=== PATIENT | male | born 1955 | race Asian ===

== ENCOUNTER 2017-02-27 01:03 | Emergency (ER) | payer OTHER ==
[2017-02-27] MEDS ORDERED: ONDANSETRON 4 MG/2 ML VIAL IVP STA (01:24)
[2017-02-27] MEDS ORDERED: diphenhydrAMINE INJ 50 MG/ML VIAL IVP STA (01:30)
[2017-02-27] MEDS ORDERED: FAMOTIDINE 20 MG/2 ML VIAL IVP STA (01:30)
[2017-02-27] MEDS ORDERED: methylPREDNISolone SUCCINATE 125 MG/2 ML VIAL IVP STA (01:30)
[2017-02-27] MEDS ORDERED: ONDANSETRON 4 MG/2 ML VIAL ONE (01:31)
[2017-02-27] MEDS ORDERED: FAMOTIDINE 20 MG/50 ML 0 ML IV ONE (01:35)
[2017-02-27] MEDS ORDERED: diphenhydrAMINE INJ 50 MG/ML VIAL ONE (01:35)
[2017-02-27] MEDS ORDERED: methylPREDNISolone SUCCINATE 125 MG/2 ML VIAL IVP ONE (01:35)
[2017-02-27 01:36] LABS: BASOPHILS # (AUTO) 0.1 10^3/uL (0.0-0.1); BASOPHILS % (AUTO) 0.6 %; EOSINOPHILS % (AUTO) 0.3 %; HCT - HEMATOCRIT 41.1 % (42.0-52.0); HGB - HEMOGLOBIN 13.2 g/dL (14.0-18.0); LYMPHOCYTES # (AUTO) 0.9 10^3/uL (1.5-3.5); LYMPHOCYTES % (AUTO) 9.2 %; MEAN CORPUSCULAR HEMOGLOBIN 23.7 pg (27.0-31.0); MEAN CORPUSCULAR HGB CONC 32.1 g/dL (32.0-36.0); MEAN CORPUSCULAR VOLUME 73.8 fL (80.0-94.0); MEAN PLATELET VOLUME 7.4 fL (7.4-11.4); MONOCYTES # (AUTO) 0.3 10^3/uL (0.0-1.0); MONOCYTES % (AUTO) 3.5 %; NEUTROPHILS # (AUTO) 8.4 10^3/uL (1.5-6.6); NEUTROPHILS % (AUTO) 86.4 %; RED BLOOD COUNT 5.57 10^6/uL (4.70-6.10); RED CELL DISTRIBUTION WIDTH 14.4 % (12.0-15.0); UNCORRECTED WHITE BLOOD COUNT 9.8 x10^3/uL; WHITE BLOOD COUNT 9.8 x10^3/uL (4.8-10.8)
[2017-02-27 01:37] LABS: BILIRUBIN,URINE NEGATIVE (NEGATIVE)
[2017-02-27] MEDS ORDERED: FAMOTIDINE 20 MG/2 ML VIAL ONE (01:37)
[2017-02-27 01:46] LABS: UA w/ MICROSCOPIC CHARGE YES; WBC,URINE 0-3 /HPF (0-3)
[2017-02-27 01:47] LABS: UR CULTURE IF IND NOT INDICATED
[2017-02-27 01:52] LABS: ALBUMIN/GLOBULIN RATIO 1.3 (1.0-2.2); BILIRUBIN,TOTAL 0.7 mg/dL (0.2-1.0); CREATININE 0.8 mg/dL (0.6-1.2); POTASSIUM 3.5 mmol/L (3.5-5.0); TOTAL PROTEIN 6.8 g/dL (6.7-8.2)
[2017-02-27] MEDS ORDERED: GI COCKTAIL 120 ML BOTTLE PO STA (02:18)
--- NOTE | 2017-02-27 02:22 | ED Physician Documentation ---
PD HPI ABD PAIN - Stated complaint Stated Complaint: RASH,ABD PX,VOMITING - Chief complaint Chief Complaint: Abd Pain - History obtained from History obtained from: Patient - History of Present Illness Timing - onset: Today Timing - details: Gradual onset, Still present Quality: Cramping, Aching Location: Epigastric Improved by: Meds Associated symptoms: No: Fever, Nausea, Vomiting, Diarrhea, Constipation Similar symptoms before: Has not had sx before Recently seen: Not recently seen - Additional information Additional information: Patient is a61 year old male with no significant past medical history who is presenting to the emergency department for rash and abdominal pain. patient states that earlier today he was working in the yard and later this evening he developed a rash on his chest and his upper extremities. Patient reports that this evening he also had epigastric pain. Review of Systems Constitutional: denies: Fever, Chills Eyes: denies: Loss of vision Ears: denies: Ear pain, Drainage/discharge Nose: denies: Rhinorrhea / runny nose, Congestion Throat: denies: Dental pain / toothache, Oral lesions / sores Cardiac: denies: Chest pain / pressure, Palpitations Respiratory: denies: Dyspnea, Cough GI: reports: Abdominal Pain. denies: Nausea, Vomiting, Constipation, Diarrhea : denies: Dysuria, Frequency Skin: reports: Rash. denies: Lesions, Abrasion (s) Musculoskeletal: denies: Neck pain, Back pain, Extremity pain, Joint pain Neurologic: denies: Generalized weakness, Focal weakness Immunocompromised: denies: Immunocompromised PD PAST MEDICAL HISTORY - Present Medications Home Medications: Ambulatory Orders Medication Instructions Recorded Confirmed Prednisone 40 mg PO DAILY 5 Days 02/27/17 Telmisartan [Micardis] 1 tab PO DAILY 02/27/17 02/27/17 - Allergies Allergies/Adverse Reactions: Allergies Allergy/AdvReac Type Severity Reaction Status Date / Time No Known Drug Allergies Allergy Verified 02/27/17 01:13 PD ED PE NORMAL - Vitals Vital signs reviewed: Yes - General General: Alert and oriented X 3 - HEENT HEENT: Atraumatic, PERRL, Moist mucous membranes - Neck Neck: Supple, no meningeal sign - Cardiac Cardiac: RRR, No murmur - Respiratory Respiratory: No respiratory distress, Clear bilaterally, Other (no wheezes) - Abdomen Abdomen: Non distended - Extremities Extremities: No deformity, No tenderness to palpate, No edema - Neuro Neuro: Alert and oriented X 3, 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 2-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, No motor deficit, No sensory deficit, Normal speech - Psych Psych: Normal mood, Normal affect PD ED PE EXPANDED - Abdomen Abdomen: Tender to palpation, Epigastric - Derm Derm: Rash, Urticaria (on upper chest and arms) Results - Vitals Vitals: Vital Signs - 24 hr 02/27/17 02/27/17 02/27/17 01:12 01:45 02:35 Temperature 36.8 C 36.3 C L Heart Rate 60 61 69 Respiratory 18 16 18 Rate Blood Pressure 121/72 130/80 136/75 H O2 Saturation 99 99 98 Oxygen O2 Source Room air - Labs Labs: Laboratory Tests 02/27/17 02/27/17 02/27/17 01:10 01:22 01:22 WBC RBC Hgb Hct MCV MCH MCHC RDW Plt Count MPV Neut # Lymph # Nolan # Eos # Baso # Absolute Nucleated RBC Nucleated RBCs Sodium 140 Potassium 3.5 Chloride 107 Carbon Dioxide 27 Anion Gap 6.0 BUN 24 H Creatinine 0.8 Estimated GFR (MDRD) 98 Glucose 125 H Calcium 9.0 Total Bilirubin 0.7 AST 24 ALT 17 Alkaline Phosphatase 34 L Troponin I < 0.04 Total Protein 6.8 Albumin 3.8 Globulin 3.0 Albumin/Globulin Ratio 1.3 Lipase 27 Urine Color LT. YELLOW Urine Clarity CLOUDY Urine pH 6.0 Ur Specific Rumsey >=1.030 H Urine Protein NEGATIVE Urine Glucose (UA) NEGATIVE Urine Ketones NEGATIVE Urine Occult Blood NEGATIVE Urine Nitrite NEGATIVE Urine Bilirubin NEGATIVE Urine Urobilinogen 0.2 (NORMAL) Ur Leukocyte Esterase NEGATIVE Urine RBC None Seen Urine WBC 0-3 Ur Squamous Epith Cells NONE SEEN Amorphous Sediment Marked Urine Bacteria None Seen Ur Microscopic Review INDICATED Urine Culture Comments NOT INDICATED 02/27/17 01:22 WBC 9.8 RBC 5.57 Hgb 13.2 L Hct 41.1 L MCV 73.8 L MCH 23.7 L MCHC 32.1 RDW 14.4 Plt Count 278 MPV 7.4 Neut # 8.4 H Lymph # 0.9 L Nolan # 0.3 Eos # 0.0 Baso # 0.1 Absolute Nucleated RBC 0.00 Nucleated RBCs 0.0 Sodium Potassium Chloride Carbon Dioxide Anion Gap BUN Creatinine Estimated GFR (MDRD) Glucose Calcium Total Bilirubin AST ALT Alkaline Phosphatase Troponin I Total Protein Albumin Globulin Albumin/Globulin Ratio Lipase Urine Color Urine Clarity Urine pH Ur Specific Rumsey Urine Protein Urine Glucose (UA) Urine Ketones Urine Occult Blood Urine Nitrite Urine Bilirubin Urine Urobilinogen Ur Leukocyte Esterase Urine RBC Urine WBC Ur Squamous Epith Cells Amorphous Sediment Urine Bacteria Ur Microscopic Review Urine Culture Comments PD MEDICAL DECISION MAKING - ED course Complexity details: reviewed old records, reviewed results, re-evaluated patient , considered differential, d/w patient ED course: Patient was seen and examined at bedside. Patient's findings were consistent with allergic reaction. IV access was gained and labs were drawn. Patient was treated with solumedrol, pepcid and benadryl. Up re-evaluation patient stated that his pain went from a 8-4. Patient was also treated with a gi cocktail. patient's diagnostics were within normal limits. Patient required no further work up at this time and was stable for discharge with outpatient follow up. Departure - Departure Disposition: 01 Home, Self Care Clinical Impression: Allergic reaction Condition: Good Instructions: ED Anaphylaxis General Follow-Up: primary,care provider [Other] Prescriptions: Prednisone 40 mg PO DAILY 5 Days Comments: Your symptoms today are beding caused by an allergic reaction. You should continue taking benadryl and pepcid and take steroids for the next 4 days. You should return to the emergency department at any time for chest pain, shortness of breath, new, worsening or uncontrollable symptoms.
[2017-02-27] MEDS ORDERED: MAG HYDROX/AL HYDROX/SIMETH 30 ML UDC PO STA (02:24)
[2017-02-27] MEDS ORDERED: LIDOCAINE VISCOUS 2% 15 ML UDC MM STA (02:24)
[2017-02-27] MEDS ORDERED: MAG HYDROX/AL HYDROX/SIMETH 30 ML UDC ONE (02:25)
[2017-02-27] MEDS ORDERED: LIDOCAINE VISCOUS 2% 15 ML UDC MM ONE (02:28)
[2017-02-27 02:36] VITALS: BP 136/75
== END 2017-02-27 02:57 | disposition home or self-care (01) ==
LOC: ED 01:03
DX: T78.40XA Allergy, unspecified, initial encounter (principal); X58.XXXA Exposure to other specified factors, initial encounter
CPT/HCPCS: 36415; 80053; 81001; 83690; 84484; 85025; 96374; 96375; 99283; 99284; A9270; 81003; 87086

== ENCOUNTER 2017-07-25 10:48 | Emergency (ER) | payer OTHER ==
[2017-07-25] MEDS ORDERED: FAMOTIDINE 20 MG/2 ML VIAL IVP STA (10:54)
[2017-07-25] MEDS ORDERED: methylPREDNISolone SUCCINATE 125 MG/2 ML VIAL IVP STA (10:54)
[2017-07-25] MEDS ORDERED: diphenhydrAMINE INJ 50 MG/ML VIAL IVP STA (10:54)
--- NOTE | 2017-07-25 11:00 | ED Physician Documentation ---
PD HPI SKIN - Stated complaint Stated Complaint: ALLERGIC REACTION - History obtained from History obtained from: Patient, Family - History of Present Illness Timing - onset: How many weeks ago (1) Timing - details: Gradual onset, Still present Location: Scalp, Face, Abdomen, Back Quality / character: Itchy, Discolored Associated symptoms: No: Fever Contributing factors: Exposed to food, Exposed to soap / lotion Similar symptoms before: No diagnosis Recently seen: Not recently seen - Additional information Additional information: Patient is a 62 year old male presenting to the emergency department for rash and trouble breathing. patient states that about a week ago he ate some salmon , and also used a new hair dye. patient states that for the last week he has had intermittent hives. patient states that he has been taking benadryl and loratadine. patient states that this morning he thought that he was having trouble breathing so he came to the emergency department. Review of Systems Constitutional: denies: Fever, Chills Eyes: denies: Decreased vision, Photophobia Ears: reports: Reviewed and negative Nose: reports: Congestion Throat: denies: Sore throat Cardiac: denies: Chest pain / pressure, Palpitations Respiratory: reports: Dyspnea. denies: Wheezing GI: denies: Nausea, Vomiting : reports: Reviewed and negative Skin: reports: Rash, Lesions Musculoskeletal: reports: Reviewed and negative Neurologic: reports: Reviewed and negative Psychiatric: reports: Reviewed and negative Endocrine: reports: Reviewed and negative PD PAST MEDICAL HISTORY - Past Medical History Past Medical History: Yes Cardiovascular: Arrhythmia Neuro: Headache/migraine - Past Surgical History Past Surgical History: No - Present Medications Home Medications: Ambulatory Orders Medication Instructions Recorded Confirmed Telmisartan [Micardis] 1 tab PO DAILY 02/27/17 07/25/17 predniSONE [Prednisone] 40 mg PO DAILY 5 Days tablet 07/25/17 raNITIdine [Zantac] 150 mg PO DAILY 07/25/17 07/25/17 - Allergies Allergies/Adverse Reactions: Allergies Allergy/AdvReac Type Severity Reaction Status Date / Time No Known Drug Allergies Allergy Verified 02/27/17 01:13 - Social History Does the pt smoke?: No Smoking Status: Never smoker Does the pt drink ETOH?: No Does the pt have substance abuse?: No - Immunizations Immunizations are current?: Yes PD ED PE NORMAL - Vitals Vital signs reviewed: Yes - General General: Alert and oriented X 3, No acute distress - HEENT HEENT: Atraumatic, PERRL - Neck Neck: Supple, no meningeal sign, No JVD - Cardiac Cardiac: RRR, No murmur - Respiratory Respiratory: No respiratory distress, Clear bilaterally - Abdomen Abdomen: Soft, Non tender, Non distended - Extremities Extremities: No deformity, Normal ROM s pain, No edema - Neuro Neuro: Alert and oriented X 3, No motor deficit, No sensory deficit, Normal speech - Psych Psych: Normal mood PD ED PE EXPANDED - Respiratory Respiratory: No: Wheezing - Derm Derm: Urticaria (diffuse uticaria throughout patient's body) Results - Vitals Vitals: Vital Signs - 24 hr 07/25/17 07/25/17 07/25/17 10:52 11:07 12:44 Temperature 36.6 C Heart Rate 92 84 77 Respiratory 20 20 15 Rate Blood Pressure 166/97 H 163/100 H 157/91 H O2 Saturation 99 100 100 Oxygen O2 Source Room air PD MEDICAL DECISION MAKING - ED course Complexity details: reviewed old records, re-evaluated patient, considered differential, d/w patient, d/w family ED course: patient was seen and examined at bedside. Patient had no airway compromise but did have diffuse uticaria. Patient was treated with solumedrol, benadryl and pepcid. Patient was observed in the emergency department. Patient had no airway compromise or involvement. Patient's symptoms improved. Patient required no further work up and was stable for discharge with outpatient follow up. Departure - Departure Disposition: 01 Home, Self Care Clinical Impression: Allergic urticaria Condition: Good Instructions: ED Allergic Reaction General Other Follow-Up: primary,care provider [Other] - Within 3 Days Prescriptions: predniSONE [Prednisone] 40 mg PO DAILY 5 Days tablet Comments: Your symptoms today are being caused by an allergic reaction. You should continue with the benadryl and loratidine. You will be placed on steroids for the next few days. You will need to follow up with your doctor to schedule a follow up appointment with an scale clerk. You may return to the emergency department at any time for new, worsening or uncontrollable symptoms. Discharge Date/Time: 07/25/17 12:49
[2017-07-25 12:45] VITALS: BP 157/91
== END 2017-07-25 12:49 | disposition home or self-care (01) ==
LOC: ED 10:48
DX: L50.0 Allergic urticaria (principal); I49.9 Cardiac arrhythmia, unspecified
CPT/HCPCS: 96374; 96375; 99283; 99284

== ENCOUNTER 2017-10-25 11:07 | Day surgery (SDC) | payer OTHER ==
[2017-10-25] MEDS ORDERED: LACTATED RINGERS 1,000 ML IV ONE (11:30)
[2017-10-25] MEDS ORDERED: MIDAZOLAM 2 MG/2 ML VIAL IVP ONE (12:01)
[2017-10-25] MEDS ORDERED: fentaNYL 250 MCG/5 ML VIAL IVP ONE (12:01)
[2017-10-25 13:01] VITALS: BP 112/77
== END 2017-10-25 11:08 | disposition home or self-care (01) ==
LOC: SDS 11:07
PROVIDERS: ATTEND Surgery
PROC: 0DBM8ZX Excision of Descending Colon, Via Natural or Artificial Opening Endoscopic, Diagnostic (ICD-10-PCS; principal; 2017-10-25 12:45)
DX: Z12.11 Encounter for screening for malignant neoplasm of colon (principal); D12.4 Benign neoplasm of descending colon; K64.8 Other hemorrhoids; I10 Essential (primary) hypertension; R12 Heartburn; G47.30 Sleep apnea, unspecified; Z87.891 Personal history of nicotine dependence
CPT/HCPCS: 45384; J3010; J7120

== ENCOUNTER 2021-04-23 16:23 | Outpatient (CLI) | payer MEDICARE, OTHER | END 2021-04-23 16:24 | disposition home or self-care (01) | LOC: COV 16:23 | PROVIDERS: ATTEND Family Medicine | DX: Z20.822 Contact with and (suspected) exposure to COVID-19 (principal) ==

== ENCOUNTER 2021-10-05 08:59 | Outpatient (CLI) | payer MEDICARE, OTHER ==
[2021-10-05 10:11] VITALS: BP 124/74
--- NOTE | 2021-10-05 10:11 | SLEEP CARE CONSULTATION ---
Information from patient questionnaire entered by Samia Reyes MA. I have reviewed and concur with the information entered by Samia Reyes MA. This document represents the service I personally performed and the decisions made by me, Blank Valencia MD, [facility], [place]. History of Present Illness Service Date and Time: 10/05/2021 0859 Reason for Visit: New patient ( LAST SEEN 10/2020, ON CPAP, ) Chief Complaint: reports: Snoring, Frequent awakenings at night Date of Onset: 20 YEARS Usual bedtime: 90 - 1000 PM Time it takes to fall asleep: 20 MINUTES Snores at night: Yes Observed to quit breathing while asleep: Yes Sleeps alone due to snoring: Yes Number of times waking at night: 2-3 Reasons for waking at night: reports: Other (FOR NO APPARENT REASON.) Toss, Turn, or Twitch while sleeping: Yes Recalls having dreams: Yes Usually gets out of bed at: 0730 Feels refreshed in the morning: Yes Morning headache: No Sleepy or fatigued during the day: No Ever fallen asleep while driving: No Takes day naps: Yes (10-20 MINUTES NAP) Dreams during day naps: Yes (SOMETIMES) Prior sleep studies: Yes Year and Where: [facility] OCTOBER 2010 SEE ATTACHED Additional HPI information: I had the pleasure of seeing Mr. Chan today regarding obstructive sleep apnea-hypopnea. As you know, he is a 65-year-old gentleman who was diagnosed with the sleep-disordered breathing here in 2006. The AHI was 41.3. He was prescribed a CPAP device which he never really used. He said he worked irregular schedule back then. He continues to snore loudly and quit breathing at home according to his . He is now retired and interested in trying the CPAP again. His uses a CPAP. He also complains of insomnia where he wakes up during the night and has to read for a while. He goes to bed at 9-9:30 pm and gets up around 7 7:30 am. He says there is nothing to do after 9 pm. 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 Patient is and lives in [place]. Have you smoked in the past 12 months: Yes Cigarettes per day (20/pack): 5 Years of smokin Quit date: 2011 Smoking Pack Years: 4.0 Alcohol use: Yes Alcohol amount and frequency: 3-4 X WEEKLY Caffeine use: Yes Caffeine amount and frequency: 2-3 DAILY Family History Family history of sleep disordered breathing: Yes Family Hx Sleep Apnea: Sibling: Sleep apnea - Treated Allergies and Home Medications Known drug allergies: No Drug allergies reviewed: Yes Home medication list reviewed: Yes Allergy and home medication list: Allergies No Known Drug Allergies Allergy (Verified 02/27/17 01:13) Review of Systems Cardiovascular: reports: high blood pressure Respiratory: reports: chronic cough Gastrointestinal: reports: heartburn Urinary: denies: incontinence, frequency, urgency, impotence, other Neurological: reports: other (MIGRAINES) Psychiatric: denies: Attention Deficit Hyperactivity, anxiety, depression, mood disorder, claustrophobia, other Ear/Nose/Throat: denies: nasal congestion, sinus problems, nose bleeds, dry mouth/throat, hoarseness, injury to nose, tonsillectomy, wisdom teeth removed, other Endocrine: denies: thyroid disease, history of goiter, sluggishness, too hot or cold, excessive thirst, increased appetite, increased urination, unexplained weakness, other Musculoskeletal: denies: joint pain, neck pain, back pain, joint swelling, muscle pain or cramping, mobility problems, other Immunologic: reports: itching Physical Exam Vital signs obtained and entered by: MAMADOU Philip Blood Pressure: 124/74 (LEFT, PULSE 57,RESP 16, ) Heart Rate: 60 O2 Saturation: 100 (PAPER MASK) Height: 5 ft 3 in Weight: 155 lb Body Mass Index: 27.4 BMI Classification: Overweight Neck circumference: 17 (INCHES) Impression and Plan IMPRESSION: 1. Obstructive Sleep Apnea-Hypopnea Syndrome, severe, as previously diagnosed but untreated. He appears to be symptomatic for loud snore, frequent awakenings, unrefreshed sleep, and persistent fatigue. Untreated obstructive sleep apnea can also cause hypertension. In order to get him treated, a new in- laboratory polysomnography will have to be performed. 2. Insomnia, due to excessive time spent in bed. The patient spends 10 hours in bed due to boredom. I explained to him that he cannot simply sleep more if he is bored. He needs to find something to do until 11 pm if he wants to wake up at 7 am. Plan: 1. Schedule polysomnography and return in 1 to 2 weeks after the study to discuss result and initiate therapy. 2. Avoid long distance driving or when feeling sleepy. 3. Avoid alcohol, sedative and muscle relaxant around bedtime. 4. Limit time spent in bed to 8 hours a night. Follow up with Sleep Care in: 1-2 months Visit Type: In Office Time Spent with Patient (minutes): 15 Provider Statement: I spent 100% of the Face to Face Visit with the patient with greater than 50% spent counseling the patient and coordination of care.
== END 2021-10-05 09:00 | disposition home or self-care (01) ==
LOC: SC 08:59
PROVIDERS: ATTEND Internal Medicine Pulmonary Disease
DX: G47.33 Obstructive sleep apnea (adult) (pediatric) (principal); G47.00 Insomnia, unspecified
CPT/HCPCS: 99202; G0463; 99212

== ENCOUNTER 2021-10-29 19:19 | Outpatient (CLI) | payer MEDICARE, OTHER | END 2021-10-29 19:20 | disposition home or self-care (01) | LOC: SC 19:19 | PROVIDERS: ATTEND Internal Medicine Pulmonary Disease | DX: G47.33 Obstructive sleep apnea (adult) (pediatric) (principal) | CPT/HCPCS: 95810 ==

== ENCOUNTER 2021-11-17 08:24 | Outpatient (CLI) | payer MEDICARE, OTHER ==
[2021-11-17 09:04] VITALS: BP 134/72
--- NOTE | 2021-11-17 09:04 | SLEEP CARE CONSULTATION ---
Information from patient questionnaire entered by Samia Reyes MA. I have reviewed and concur with the information entered by Samia Reyes MA. This document represents the service I personally performed and the decisions made by , Teresa Jennings ARNP. History of Present Illness Service Date and Time: 11/17/2021 08 Current [place] Sleepiness Scale score: 3 (11/20) Additional HPI information: BRANDYN MCALLISTER returns for follow up and results of the recently performed polysomnography. I explained the pathophysiology behind obstructive sleep apnea. We then spent quite a bit of time discussing different treatment options. For mild obstructive sleep apnea, surgery and oral appliance are alternatives to nasal CPAP therapy but in moderate or severe cases, nasal CPAP is the most effective and reliable treatment. Because apnea is primarily in supine position, then positional management therapy could be effective. Methods discussed such as positioning with pillows to prevent supine sleep. I reviewed the impact of weight changes on sleep apnea and strongly recommended losing weight. After some discussion, the patient opted to go with the nasal CPAP therapy. Nasal autoCPAP set at 4-15 cmH20 will be ordered with rationale explained. A manual titration study will be ordered if unable to find optimal pressure with office adjustments. I explained how CPAP machine works and what to expect when using the machine. Using CPAP every night in order to get used to it was emphasized. Patient advised to put CPAP mask on before getting into bed so as not to fall asleep without CPAP. To assist acclimation to CPAP use, it could also be used for a short time during day while reading or watching TV. The patient was instructed to call the CPAP supplier to discuss any mechanical problem that may occur. If the mask given is uncomfortable or is difficult to keep on through the night even with adjustment, contact the CPAP supplier as many will replace with another mask style if notified before 30 days. If snoring or perceives is not getting enough air or too much air from the machine, notify this office. [facility] patient education PAP tips reviewed and given to patient. Patient counseled not drink alcohol less than 4 hours before bedtime as it can increase snoring and apnea. Patient was cautioned about risks of drowsy driving until sleepiness symptoms resolve. Patient denies drowsy driving. Sleep Study - Results Type of Sleep Study: Polysomnography (F/U POLY, 10/29 [facility],) Polysomnography/Home Sleep Study results: IMPRESSION: The quality of the study is good. The patient had reduced sleep efficiency due to sleep onset insomnia and consulting psychologist awakening. The sleep architecture was abnormal for sleep fragmentation and lack of slow wave sleep (N3). Respiratory monitoring showed moderate obstructive sleep apnea-hypopnea (AHI = 22.1) associated with frequent arousals, oxyhemoglobin desaturation and mild hypoxia (verna oxygen saturation of 82%). The respiratory events occurred mainly during supine sleep (supine AHI = 46.0; non-supine = 20.24). Snore was moderate to loud in intensity. There was no significant periodic leg movement of sleep. Cardiac rhythm was normal sinus rhythm without significant arrhythmia except for slightly low heart rate during sleep (minimal heart rate = 39). No abnormal behavior (parasomnia) observed during the night. Allergies and Home Medications Known drug allergies: No Drug allergies reviewed: Yes Home medication list reviewed: Yes (no changes) Allergy and home medication list: Allergies No Known Drug Allergies Allergy (Verified 02/27/17 01:13) Review of Systems Review of systems same as previous: Yes (no changes) Physical Exam Vital signs obtained and entered by: MAMADOU VIDAL Blood Pressure: 134/72 (LEFT, PULSE 70, RESP 18,) Cuff size: wrist Heart Rate: 69 O2 Saturation: 98 (N95) Height: 5 ft 3 in Weight: 155 lb (WITH CLOTHES.) Body Mass Index: 27.4 BMI Classification: Overweight Impression and Plan 1. Obstructive Sleep Apnea-Hypopnea Syndrome, moderate, with lowest oxygen saturation of 82%. Obviously this is the cause of the patients symptoms of unrefreshed sleep, and excessive daytime sleepiness. Positive pressure therapy could benefit hypertension. As mentioned above, the patient will be started on nasal autoCPAP therapy with pressure set at 4-15 cmH2O. A manual titration study will be completed if unable to find optimal treatment pressure with office adjustments. Compliance guidelines also reviewed. A copy of compliance guidelines will be given for reference at check out. Because the apnea is more severe supine, I instructed to avoid sleeping supine using pillow positioning until able to start CPAP use. * Nasal auto CPAP therapy, pressure at 4-15 cm H2O. * Attempt to lose weight. * Avoid alcohol consumption near bedtime. * Avoid supine sleep until using CPAP. * The patient is again cautioned about driving until sleepiness completely resolves. * Return one month after CPAP obtained. I will assess response to therapy and compliance at that time. Counseling Topics: Sleeping position, Weight loss health impact Visit Type: In Office Time Spent with Patient (minutes): 20 Provider Statement: I spent 100% of the Face to Face Visit with the patient with greater than 50% spent counseling the patient and coordination of care.
== END 2021-11-17 08:25 | disposition home or self-care (01) ==
LOC: SC 08:24
PROVIDERS: ATTEND Internal Medicine Pulmonary Disease
DX: G47.33 Obstructive sleep apnea (adult) (pediatric) (principal)
CPT/HCPCS: 99213; G0463; 99212

== ENCOUNTER 2022-05-27 07:44 | Day surgery (SDC) | payer MEDICARE, OTHER ==
[~2022-05-27 07:44] MED LIST: CEFAZOLIN 2G/50ML 0.9% NS 2 GM/50 ML BAG IV ONE
[2022-05-27] MEDS ORDERED: LACTATED RINGERS 1,000 ML IV ONE ×2 (07:48→10:38)
[2022-05-27] MEDS ORDERED: LIDOCAINE 1% 50 ML MDV ONE (08:59)
[2022-05-27] MEDS ORDERED: BUPIVACAINE 0.25% PF 10 ML VIAL ONE ×2 (08:59→09:01)
[2022-05-27] MEDS ORDERED: NALOXONE 0.4 MG/ML VIAL IVP PRN (09:10)
[2022-05-27] MEDS ORDERED: HYDROmorphone 0.5 MG/0.5 ML SYRINGE IVP PRN (09:10)
[2022-05-27] MEDS ORDERED: ATROPINE ABBOJECT 1 MG/10 ML SYRINGE IVP PRN (09:10)
[2022-05-27] MEDS ORDERED: ONDANSETRON 4 MG/2 ML VIAL IVP PRN (09:10)
[2022-05-27] MEDS ORDERED: fentaNYL 100 MCG/2 ML VIAL IVP PRN (09:10)
[2022-05-27] MEDS ORDERED: MORPHINE 2 MG/ML CARPUJECT IVP PRN (09:10)
[2022-05-27] MEDS ORDERED: ePHEDrine 50 MG/ML VIAL IVP PRN (09:10)
[2022-05-27] MEDS ORDERED: METOCLOPRAMIDE 10 MG/2 ML VIAL IVP PRN (09:10)
--- NOTE | 2022-05-27 09:10 | ANESTHESIA ---
Pre-Anesthesia VS, & Labs - Diagnosis right inguinal hernia - Procedure right inguinal hernia repair, open Vital Signs: Temp Pulse Resp BP Pulse Ox O2 Flow Rate 36.2 C L 71 16 164/74 H 100 05/27/22 07:49 05/27/22 07:49 05/27/22 07:49 05/27/22 07:49 05/27/22 07:49 Height: 5 ft 3 in Weight (kg): 70.9 kg Body Mass Index: 27.6 BMI Classification: Overweight - NPO >8 hours Home Medications and Allergies Home Medications: Ambulatory Orders Atorvastatin [Lipitor] 20 mg PO DAILY 05/20/22 Colchicine 0.6 mg PO DAILY PRN 05/20/22 Loratadine [Claritin] 10 mg PO DAILY PRN 05/20/22 Rizatriptan Benzoate [Maxalt] 10 mg PO DAILY PRN 05/20/22 Telmisartan/Hydrochlorothiazid [Micardis Hct 40-12.5 mg Tablet] 1 tab PO DAILY 05/20/22 Omeprazole [PriLOSEC] 20 mg PO DAILY 10/25/17 Atorvastatin [Lipitor] 20 mg PO DAILY 05/20/22 Colchicine 0.6 mg PO DAILY PRN 05/20/22 Loratadine [Claritin] 10 mg PO DAILY PRN 05/20/22 Rizatriptan Benzoate [Maxalt] 10 mg PO DAILY PRN 05/20/22 Telmisartan/Hydrochlorothiazid [Micardis Hct 40-12.5 mg Tablet] 1 tab PO DAILY 05/20/22 Allergies/Adverse Reactions: Allergies Allergy/AdvReac Type Severity Reaction Status Date / Time No Known Drug Allergies Allergy Verified 02/27/17 01:13 Anes History & Medical History - Anesthetic History Anesthesia Complications: reports: No previous complications - Medical History Cardiovascular: reports: Hypertension, High cholesterol Pulmonary: reports: Sleep apnea, CPAP use Gastrointestinal: reports: GERD Urinary: reports: None Musculoskeletal: reports: Gout Endocrine/Autoimmune: reports: None Skin: reports: None Smoking Status: Never smoker Psychosocial: reports: Alcohol (3 shots a day) History of Cancer?: No - Surgical History General: reports: Colonoscopy Exam General: Alert, Oriented x3 Dental: WNL Mouth Opening: Greater than 4 Fingerbreadths Neck Mobility: Normal Mallampati classification: II Thyromental Distance: greater than 6 cm Respiratory: Lungs clear Cardiovascular: Regular rate Plan Anesthesia Type: General, Total IV Consent for Procedure(s) Verified and Reviewed: Yes Code Status: Attempt Resuscitation ASA classification: 2-Mild systemic disease Is this case an emergency?: No
[2022-05-27] MEDS ORDERED: fentaNYL 100 MCG/2 ML VIAL ONE (09:19)
[2022-05-27] MEDS ORDERED: MIDAZOLAM 2 MG/2 ML VIAL ONE (09:19)
[2022-05-27] MEDS ORDERED: PROPOFOL 200 MG/20 ML VIAL IVP ONE (09:20)
[2022-05-27] MEDS ORDERED: DEXAMETHASONE 4 MG/ML VIAL ONE (09:31)
[2022-05-27] MEDS ORDERED: ePHEDrine 50 MG/ML VIAL IVP ONE (09:31)
[2022-05-27] MEDS ORDERED: ONDANSETRON 4 MG/2 ML VIAL ONE (09:31)
[2022-05-27] MEDS ORDERED: BUPIVACAINE 0.25% PF 10 ML VIAL SUBQ ONE (09:42)
[2022-05-27] MEDS ORDERED: LACTATED RINGERS 1,000 ML IV SCH (10:00)
[2022-05-27] MEDS ORDERED: HYDROcod/ACETAM 5/325 MG TABLET PO PRN (10:38)
--- NOTE | 2022-05-27 10:46 | OPERATIVE REPORT ---
Operative Report - General Procedure Date: 05/27/22 Planned Procedure: open right inguinal hernia repair with mesh Pre-Op Diagnosis: right inguinal hernia Procedure Performed: open right inguinal hernia repair with mesh Post Op Diagnosis: indirect inguinal hernia - Procedure Note Primary Surgeon: jessica cotto md Anesthesia Technique: General LMA, Local Pathology: none sent Estimated Blood Loss (mL): 2 Indications: painful hernia Findings: as above Complications: none - Other Other Information/Narrative: Patient was properly identified brought to the operating room and placed in supine position. Sequential compression devices were placed. Laryngeal mask anesthesia was induced. He was prepped and draped in a sterile fashion and given preoperative antibiotics. Local anesthetic was given throughout the procedure. A 5 cm incision was made in the direction of Baldev's lines just cephalad of the pubic tubercle. Dissection proceeded with cutting current cautery. The supe rficial epigastric vein was identified clamped divided and tied with 3-0 Vicryl. Dissection proceeded down to the aponeurosis. The aponeurosis was opened in the direction of its fibers and extended to the external ring. Cord structures were mobilized and brought up. The nerves were carefully protected and preserved. Cord structures were mobilized and brought up. An indirect inguinal hernia was present. The hernia sac was mobilized off the cord structures and suture ligated with 2 O silk and further reduced. Preperitoneal fat was removed. The base was tied with 2 O vicryl. Polypropylene mesh was cut to size and with tails. The mesh was secured with multiple interrupted 0 Ethibond sutures. She was placed along the pubic tubercle, Anand's ligament area and along the shelving border of Poupart's ligament. Sutures were placed medially along the abdominal wall musculature and internal oblique. The medial tail of the mesh was secured to the shelving border of Poupart's ligament with 3 interrupted 0 ethibond sutures recreating the internal ring of appropriate size. An additional suture was placed in the crotch of the mesh recreating an internal ring of appropriate size. Aponeurosis was closed with a running 2-0 Vicryl suture. The opposite was closed with interrupted 3-0 Vicryl suture. Buried interrupted subdermal 3-0 Vicryl sutures were then placed. And was clos ed with a running 4-0 Monocryl subcuticular suture. Dressing was applied. Patient was awakened and brought to recovery in good condition.
[2022-05-27 11:13] VITALS: BP 124/95
== END 2022-05-27 07:45 | disposition home or self-care (01) ==
LOC: SDS 07:44
PROVIDERS: ATTEND Surgery
DX: K40.90 Unilateral inguinal hernia, without obstruction or gangrene, not specified as recurrent (principal); I10 Essential (primary) hypertension; G47.30 Sleep apnea, unspecified
CPT/HCPCS: 49505; C1781; J0690; J7120

== ENCOUNTER 2022-07-19 08:58 | Outpatient (CLI) | payer MEDICARE, OTHER ==
[2022-07-19 15:21] VITALS: BP 122/78
--- NOTE | 2022-07-19 15:21 | SLEEP CARE CONSULTATION ---
Information from patient questionnaire entered by Davina Candelario. I have reviewed and concur with the information entered by Davina Candelario. This document represents the service I personally performed and the decisions made by me, Blank Valencia MD, [facility]. History of Present Illness Service Date and Time: 07/19/2022 0858 Reason for follow up: first compliance Equipment type: CPAP (RESMED SET UP 03/29/22) Type of Sleep Study: Polysomnography (F/U POLY, 10/29 [facility],) HPI additional information: Mr. Chan was diagnosed to have moderate obstructive sleep apnea-hypopnea syndrome and returns today for follow up of CPAP therapy. The patient purchased the device from [employer] and was fitted with ResMed P10 nasal pillows. He uses the device nightly and all through the night. The compliance report shows that he uses the device 84 nights out of the past 90 nights, averaging 4.4 hours a night. He complains of waking up around 2 am and lying awake for 2 3 hours. He goes to bed at 9:30 pm and falls asleep quickly. He gets out of bed around 7:30 am. He thinks that the pressure of 4 - 15 cmH2O is comfortable. On the CPAP therapy he notices improvement in his sleep quality, and that he wakes up feeling fresher in the morning and more awake/alert during the day. His notices no snore at all. [place] Sleepiness Scale score is 3. The average residual AHI is 1.0; and average air leak is 0.2 L/minute. The 90th percentile pressure is 8.1 cmH2O. Sleep Study - Results Type of Sleep Study: Polysomnography (F/U POLY, 10/29 [facility],) Subjective Current [place] Sleepiness Scale score: 3 (07/19/22) Allergies and Home Medications Known drug allergies: No Drug allergies reviewed: Yes Home medication list reviewed: Yes Allergy and home medication list: Allergies No Known Drug Allergies Allergy (Verified 02/27/17 01:13) Review of Systems Review of systems same as previous: Yes Physical Exam Vital signs obtained and entered by: DAVINA Wilkinson MA Blood Pressure: 122/78 (LEFT ARM) Cuff size: regular Heart Rate: 78 O2 Saturation: 99 Height: 5 ft 3 in Weight: 159 lb 3.2 oz Body Mass Index: 28.2 BMI Classification: Overweight Impression and Plan IMPRESSION: 1. Obstructive Sleep Apnea-Hypopnea Syndrome, moderate, with the patient continuing to do well on nasal CPAP therapy. He has good compliance and significant clinical benefits. The current pressure appears effective and comfortable. Overall, he is very satisfied with treatment and plans to continue with it long-term. No adjustment is necessary today. 2. Insomnia due to excessive time spent in bed of 10 hours a night. The patient said he used to require just 6 hours of sleep when he was working. Therefore, I advised him to spend just 6 hours in bed. He chose 10 pm to 4 am. PLAN: 1. Continue with autoCPAP set at 4 - 15 cm H2O. 2. Maintain a regular wake up time and spend no more than 6 hours in bed at night. Avoid naps. 3. Return in one year for follow up or earlier if there is any problem with the treatment. Continue with device pressure at (cmH2O): 4 - 15 Follow up with Sleep Care in: 1 year Visit Type: In Office Time Spent with Patient (minutes): 20 Provider Statement: I spent 100% of the Face to Face Visit with the patient with greater than 50% spent counseling the patient and coordination of care.
== END 2022-07-19 08:59 | disposition home or self-care (01) ==
LOC: SC 08:58
PROVIDERS: ATTEND Internal Medicine Pulmonary Disease
DX: G47.33 Obstructive sleep apnea (adult) (pediatric) (principal); G47.00 Insomnia, unspecified; E66.3 Overweight; Z68.28 Body mass index [BMI] 28.0-28.9, adult
CPT/HCPCS: 99213; G0463; 99212

== ENCOUNTER 2023-08-22 10:53 | Outpatient (CLI) | payer MEDICARE, OTHER ==
--- NOTE | 2023-08-22 12:05 | SLEEP CARE CONSULTATION ---
Information from patient questionnaire entered by Davina Candelario. I have reviewed and concur with the information entered by Davina Candelario. This document represents the service I personally performed and the decisions made by me, Blank Valencia MD, [facility]. History of Present Illness Service Date and Time: 08/22/2023 1053 Reason for follow up: annual (LAST SEEN 07/2022) Equipment type: CPAP (RESMED SET UP 03/29/22) Type of Sleep Study: Polysomnography (F/U POLY, 10/29 [facility],) HPI additional information: Mr. Chan was diagnosed to have moderate obstructive sleep apnea-hypopnea syndrome and returns today for his annual follow up of CPAP therapy. The patient purchased the device from [employer] and was fitted with ResMed P10 nasal pillows. He uses the device nightly but not all night. The [facility] pliance report shows that he uses the device 289 nights out of the past 365 nights, averaging 4.3 hours a night. The > 4 hour compliance rate for the past 30 days is 44%. His usage dropped from about 6 hours a night to 2 hours a night in March of last year. He also did not us the CPAP for a month in June when he went to the [facility]. He complains of waking up around 2 am and lying awake for 2 3 hours. He goes to bed at 10 pm and falls asleep quickly. He gets out of bed around 8 am. He thinks that the pressure of 4 - 15 cmH2O is comfortable. On the CPAP therapy he notices improvement in his sleep quality, and that he wakes up feeling fresher in the morning and more awake/alert during the day. His notices no snore at all. [place] Sleepiness Scale score is 2. The average residual AHI is 1.0; and average air leak is 0.6 L/minute. The 90th percentile pressure is 7.8 cmH2O. Sleep Study - Results Type of Sleep Study: Polysomnography (F/U POLY, 10/29 [facility],) CPAP Compliance Data - Data Reviewed with Patient Average duration of nightly device use: 4HRS 17MINS Compliance rate %: 44 (08/18/22-08/17/23) Current pressure setting (cmH2O): 4-15 Average residual AHI: 0.9 Subjective Current [place] Sleepiness Scale score: 2 (08/02/23) Allergies and Home Medications Drug allergies reviewed: Yes Home medication list reviewed: Yes Allergy and home medication list: Allergies No Known Drug Allergies Allergy (Verified 08/18/23 16:43) Review of Systems Review of systems same as previous: Yes (NO CHANGE) Physical Exam Vital signs obtained and entered by: DAVINA Wilkinson MA Blood Pressure: 161/94 (LEFT ARM) Cuff size: regular Heart Rate: 62 O2 Saturation: 98 Height: 5 ft 3 in Weight: 172 lb Body Mass Index: 30.4 BMI Classification: Obese Impression and Plan IMPRESSION: 1. Obstructive Sleep Apnea-Hypopnea Syndrome, extremely severe, with the patient continuing to do well on nasal CPAP therapy. He has excellent compliance and significant clinical benefits. The current pressure appears effective and comfortable. Overall, he is very satisfied with treatment and plans to continue with it long-term. No adjustment is necessary today. He would like to switch away from [facility] because of billing issues. PLAN: 1. Continue with autoCPAP set at 8 - 12 cm H2O. 2. Try to lose weight 3. Prescription made to [facility] for supplies. 4. Return for a follow up in a year or earlier if there is any problem. Counseling Topics: Weight control Prescriptions: Other Follow up with Sleep Care in: 1-2 months Visit Type: In Office Patient Location: (Zolpidem 5 mg) Time Spent with Patient (minutes): 15 Provider Statement: I spent 100% of the Face to Face Visit with the patient with greater than 50% spent counseling the patient and coordination of care.
[2023-08-22 12:18] VITALS: BP 161/94; O2SAT 98
== END 2023-08-22 10:54 | disposition home or self-care (01) ==
LOC: SC 10:53
PROVIDERS: ATTEND Internal Medicine Pulmonary Disease
DX: G47.33 Obstructive sleep apnea (adult) (pediatric) (principal); E66.9 Obesity, unspecified; Z68.30 Body mass index [BMI] 30.0-30.9, adult
CPT/HCPCS: 99212; G0463

== ENCOUNTER 2023-11-21 09:15 | Outpatient (CLI) | payer MEDICARE, OTHER ==
--- NOTE | 2023-11-21 09:58 | SLEEP CARE CONSULTATION ---
Information from patient questionnaire entered by Davina Candelario. I have reviewed and concur with the information entered by Davina Candelario. This document represents the service I personally performed and the decisions made by me, Blank Valencia MD, [facility]. History of Present Illness Service Date and Time: 11/21/2023914 Reason for follow up: other (2 MONTH ) Equipment type: CPAP (RESMED SET UP 03/29/22) Type of Sleep Study: Polysomnography (F/U POLY, 10/29 [facility],) HPI additional information: Mr. Chan was diagnosed to have moderate obstructive sleep apnea-hypopnea syndrome and returns today for his annual follow up of CPAP therapy. The patient purchased the ResMed AirSense 11 from [employer] and was fitted with ResMed P10 nasal pillows. He uses the device almost nightly but not all night. The compliance report shows that he uses the device 48 nights out of the past 60 nights, averaging 6.5 hours a night. The > 4 hour compliance rate for the past 60 days is 70%. He complains of waking up around 2 am and lying awake for 2 3 hours. He goes to bed at 10 pm and falls asleep quickly. He gets out of bed around 8 am. He thinks that the pressure of 4 - 15 cmH2O is comfortable. On the CPAP therapy he notices improvement in his sleep quality, and that he wakes up feeling fresher in the morning and more awake/alert during the day. His notices no snore at all. [place] Sleepiness Scale score is 5. The average residual AHI is 1.1; and average air leak is 0.6 L/minute. The 90th percentile pressure is 9.4 cmH2O. Sleep Study - Results Type of Sleep Study: Polysomnography (F/U POLY, 10/29 [facility],) CPAP Compliance Data - Data Reviewed with Patient Average duration of nightly device use: 6HRS 30MINS Compliance rate %: 77 (09/18/23-11/16/23) Current pressure setting (cmH2O): 4-15 Average residual AHI: 1.1 Subjective Current [place] Sleepiness Scale score: 5 (11/21/23) Allergies and Home Medications Drug allergies reviewed: Yes Home medication list reviewed: Yes Allergy and home medication list: Allergies No Known Drug Allergies Allergy (Verified 11/17/23 08:40) Review of Systems Review of systems same as previous: Yes (NO CHANGE) Physical Exam Vital signs obtained and entered by: DAVINA Wilkinson MA Blood Pressure: 151/90 (RIGHT ARM) Cuff size: regular Heart Rate: 75 O2 Saturation: 100 Height: 5 ft 3 in Weight: 171 lb Body Mass Index: 30.2 BMI Classification: Obese Impression and Plan IMPRESSION: 1. Obstructive Sleep Apnea-Hypopnea Syndrome, moderate, with the patient continuing to do well on nasal CPAP therapy. He has good compliance and significant clinical benefits. The current pressure appears effective and comfortable. Overall, he is very satisfied with treatment and plans to continue with it long-term. No adjustment is necessary today. 2. Insomnia due to excessive time spent in bed of 10 hours a night. According to him, he tried to get out of bed by 4 am as instructed, but he still woke up during the night. So, he is now back spending 10 hours in bed, from 10 pm to 8 am. He said he is retired and has nothing to do. PLAN: 1. Continue with autoCPAP set at 4 - 15 cm H2O. 2. Return for a follow up in a year or earlier if there is any problem. Follow up with Sleep Care in: 1 year Visit Type: In Office Time Spent with Patient (minutes): 15 Provider Statement: I spent 100% of the Face to Face Visit with the patient with greater than 50% spent counseling the patient and coordination of care.
[2023-11-21 10:06] VITALS: BP 151/90; O2SAT 100
== END 2023-11-21 09:16 | disposition home or self-care (01) ==
LOC: SC 09:15
PROVIDERS: ATTEND Internal Medicine Pulmonary Disease
DX: G47.33 Obstructive sleep apnea (adult) (pediatric) (principal); G47.00 Insomnia, unspecified
CPT/HCPCS: 99212; G0463